=== PATIENT | male | born 2005 | race Caucasian/White ===

== ENCOUNTER → 2025-08-31 14:30 | Outpatient (BNV) | payer BC, SELFPAY | PROVIDERS: Visit Provider Psychiatry & Neurology Psychiatry | DX: F32.3 Major depressive disorder, single episode, severe with psychotic features (principal); F90.9 Attention-deficit hyperactivity disorder, unspecified type | CPT/HCPCS: 99203 ==

== ENCOUNTER 2025-10-01 11:30 | Outpatient (RCR) | payer BC, SELFPAY ==
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
--- NOTE | 2025-09-03 10:08 | HO.PHP ---
This sign writer hand reached out to the number provided for Ho by his mother Fawn. He shared he was not interested in continuing with the program. This sign writer hand encouraged giving the program 3 days to get a better understanding of the program. He reported he was safe to this sign writer hand in which he denied SI thoughts, plans, and intent today. This sign writer hand also explored if he has regular meetings with a therapist in which he appeared unsure why he would do this. This sign writer hand informed him we typically place referrals on day 3 of the program. Pt stated his phone needed to be charged and was going to . This sign writer hand advised pt to charge his phone and suggested a follow-up call would be made later today. This appeared receptive.
--- NOTE | 2025-09-03 12:37 | HO.PHP ---
[facility] staff member followed up with Ho, in which he reported that he does not want to continue in the program because he doesn't feel comfortable with being the youngest person in the group. PHP staff explored if he has an OP therapist, in which he disclosed he does not. PHP staff member assessed if he would like an OP therapist. Ho said probably. PHP staff member was receptive and noted that what she suggest he does, is that he tries the program for a little bit longer while PHP staff work on getting him an OP therapist. PHP staff member said if he is still not feeling as though this is a good fit, we can further discuss as a team then. Ho was receptive and noted that he will be here tomorrow.
[2025-09-05 09:42] VITALS: BP 102/70; PULSE 60; TEMP 37.2
--- NOTE | 2025-09-05 13:54 | HO.PHP ---
PHP staff member placed a referral through [facility] for Ho Young for OP therapy and is awaiting on an appointment date and time.
--- NOTE | 2025-09-05 14:54 | PC.ADMIT ---
Patient is a 19 year old single male who was referred to [facility] by [facility] crisis secondary to depression. Per integrative assessment patient reportedly stated he wanted to kil himself and drank heavily over the weekend thus mom took patient to crisis for an evaluation. Patient reports he was going to [employer] however he is taking a leave of absence to work on his mental health. Patient reports that he is struggling with anxiety and depression and feels he is cognitivily declining secondary to using marijuana with his prescription Adderall. Stated when he used them together he would ruminate obsessively and have psychosis. He stated he is not on his prescription Adderall as his prescriber told him to stop taking this medication. Stated last use was 08/31/25. Patient also reports last use of marijuana was September 02, 2025. Patient does not feel he needs [facility] groups at this time. Patient is alert and oriented x4. He is calm and cooperative. He presented with depressed mood and affect. Regarding SI patient denied currently. Patient stated, Sometimes, I don't really know I don't really have a plan or idea of how to do it . Patient was given a copy of his safety plan if needed. Medications updated with patient and patient's pharmacy.
--- NOTE | 2025-09-06 14:50 | HO.PHP ---
Clients case was opened and reviewed in teams.
--- NOTE | 2025-09-07 10:00 | P.PNPSP_ITS ---
Subjective Subjective Date of Service: 09/07/25 Reason For Visit: anxiety,depression Interim History: This is a follow-up visit with Ho whom I had seen last week. He has continued to be substance free but anxious specially in the mornings and some depression. Currently he is on no medications. I reviewed his previous medication trials and seems like Prozac had been the most helpful. We will initiate that at 20 mg every other day for several doses and then every day. Side effects including black box warning discussed. He continues to have passive suicidal ideations with no plans or intent. He will be seen and followed by Dr. Rios as of next week Review of Systems Review of Systems Yes all other systems are reviewed and are negative Mental Status Exam Mental Status Exam Patient Appearance: Appropriate Patient Orientation: Person, Place, Time and Situation Level of Consciousness: Appropriate Patient Behavior: Appropriate Mood Description: Calm Affect Description: Calm Patient Cognition Impaired: No Ability to Follow Directions: Excellent Speech Pattern: Clear Memory Description: Intact Hallucinations: None Delusions: Not Present Thought Process: Intact Thought Content: positive for Intact Depressive Symptoms: Increased Anxiety, Diff. Making Decisions, Difficulty Sleeping, Changes in Appetite, Sleeping More Than Usual, Loss of Int. in Activity, Feelings of Worthlessness, Isolating-Friends/Family and Thoughts of /Suicide (No active suicidal or homicidal ideations but still has passive ideations) Judgement: Good Assessment & Plan Assessment & Plan (1) Major depression with psychotic features: Status: Acute Code(s): F32.3 - Major depressive disorder, single episode, severe with psychotic features (2) ADHD: Status: Acute Code(s): F90.9 - Attention-deficit hyperactivity disorder, unspecified type Plan Continue PHP. Initiate Prozac 20 mg daily Patient educated on: medication risk/benefits Reason for contiued partial hosp. stay Substantial Risk for: harm to self Certification I certify that partial hospital treatment is medically necessary due to the symptoms and problems resulting from the patient's mental illness and the failure to treat the patient at the partial hospital level of care would likely result in the patient requiring PHP care which could not be prevented at a less intensive level of care. Total time managing care of this patient today ____ minutes. Discharge Plan Discharge Attending provider: Rosalba Rios Medications: New fluoxetine [Prozac] 20 mg capsule 20 mg PO DAILY Qty: 14 0RF No Action bupropion HCl 300 mg tablet extended release 24 hr 300 mg PO DAILY melatonin 10 mg Tablet 10 mg PO BEDTIME PRN (Reason: Insomnia) Patient Comments: Patient stated he takes two 10 mg tabs at HS OTC. He was advised to discuss with Dr. Navarro and not to take more than one tab at HS. aripiprazole 2 mg tablet 2 mg PO DAILY Stand Alone Forms: Patient Portal Discharge page Print Language: Lithuanian
--- NOTE | 2025-09-13 21:34 | HO.PHPPROGNO ---
Subjective Subjective Date of Service: 09/13/25 Reason For Visit: anxiety,depression Interim History: Patient is a 19 yo [employer] [[email or web address]] student, currently on medical leave, seen for follow-up anticipating discharge today. Pt was previously admitted and seen by covering MD who initiated fluoxetine for depressive symptoms 6 days ago. No improvement noted so far, but has been well-tolerated. Continues on Wellbutrin which he has been on for many years and is unsure if this is helpful. Patient was initially difficult to engage, appears withdrawn and reporting he's just dealing with dealing with a lot of regret I don't really want to talk about . He denies he has been able to discuss this in groups because he feels so much shame and doesn't want to trigger other patient's also concerned about being judged. He continues to struggle with SI without plan and denies intent to harm self, but reports profound sense of worthlessness and feelings of guilt. Describes anhedonia and difficult with onset of sleep due to obsessive rumination. Pervseverating on loss friendship from over 2 years ago. Marijuana use was heavy in the past and he seemed to have appreicated this was affecting him and has cut back considerably in the past year (preivous smoking daily, now says he might smoke once a week or less, last used 6 days ago). In our discussion he talks about his depression and anxiety in the context of some life situations and eventually shares regrets around deterioration of a close local intermodal truck driver friendship that lead to some behaviors that might be looked at as stalking (mostly limited to searching social media for updates and information about this friend). It is impressed upon me the severity of perseveration noted in his thought patterns, and circular and obsessional thoguhts which extends into all areas of life. and appears to be quite impaired by this for a long time now. Has made engaging with others interperosnally as well as managing his academics really difficult. It's like my brain is a Lego set and I rewind my brain going through things, playing things over and over and have analyzed myself and deconstructed my thoughts down to the parts and it's like I cant put it back together.. but I didn't mean to do this Notable for obsessiveness in the domains of morality and scrupulosity and is reminiscent of possible underling OCD spectrum. He denies any issues with anger, aggression, AI or HI. Denies any AH or VH and no paranoid or delusional content was elicited. Has previously been treated for ADHD which wsa helpful in the past, but admits he had been using this with cannabis a few years ago so stopped both. He continues to use nicotine (vape) on a daily basis my anxiety is so bad when I wake up that it's (nicotine) the first thing I hit . Medication Compliance: Yes Side effects from medications: No Attending Groups: Yes Review of Systems Acute medical concerns: No Mental Status Exam Mental Status Exam Patient Appearance: Unkempt Patient Orientation: Person, Place, Time and Situation Level of Consciousness: Awake Patient Behavior: Guarded, Anxious and Distractible (and fidgeting, avoidant eye contact) Mood Description: Depressed Affect Description: Withdrawn, Depressed and Blunted Patient Cognition Impaired: No Ability to Follow Directions: Good Speech Pattern: Perseverating Memory Description: Intact Hallucinations: None Delusions: Not Present Thought Process: Distracted and Rumination Thought Content: positive for Obsessional Thoughts, positive for Preoccupation and positive for Suicidal Ideation Depressive Symptoms: Diff. Making Decisions, Difficulty Sleeping, Changes in Appetite, Loss of Int. in Activity, Feelings of Worthlessness, Hopelessness, Isolating-Friends/Family, Feelings of Guilt, Low Self Esteem and Difficulty Concentrating Abnormal Motor Activity Signs and Symptoms: Restlessness Judgement: Good Assessment & Plan Assessment & Plan (1) MDD (major depressive disorder), recurrent severe, without psychosis: Status: Acute Code(s): F33.2 - Major depressive disorder, recurrent severe without psychotic features (2) Other obsessive-compulsive disorder: Status: Acute Code(s): F42.8 - Other obsessive-compulsive disorder (3) ADHD: Status: Acute Code(s): F90.9 - Attention-deficit hyperactivity disorder, unspecified type Plan extend PHP start Abilify 2 mg qd cont fluoxetine 20 mg (consider increasing after titrating Abilify) cont Wellbutrin XL 300 mg qam will order Vyvanse (too see if requires PA) but pt to hold off starting for now Patient educated on: diagnosis and medication risk/benefits Informed Consent: understands Reason for contiued partial hosp. stay Substantial Risk for: inability to function and med/psych decompensation Certification I certify that partial hospital treatment is medically necessary due to the symptoms and problems resulting from the patient's mental illness and the failure to treat the patient at the partial hospital level of care would likely result in the patient requiring inpatient psychiatric care which could not be prevented at a less intensive level of care. Total time managing care of this patient today _45___ minutes. Discharge Plan Discharge Attending provider: Rosalba Rios Medications: New aripiprazole 2 mg tablet 2 mg PO BEDTIME Qty: 14 0RF lisdexamfetamine 10 mg capsule 10 mg PO QAM Qty: 14 0RF Rx Instructions: Partial Fill upon patient request. lorazepam 0.5 mg tablet 0.5 mg PO BID PRN (Reason: anxiety) Qty: 14 0RF Continued fluoxetine [Prozac] 20 mg capsule 20 mg PO DAILY Qty: 14 0RF No Action bupropion HCl 300 mg tablet extended release 24 hr 300 mg PO DAILY melatonin 10 mg Tablet 10 mg PO BEDTIME PRN (Reason: Insomnia) Patient Comments: Patient stated he takes two 10 mg tabs at HS OTC. He was advised to discuss with Dr. Navarro and not to take more than one tab at HS. aripiprazole 2 mg tablet 2 mg PO DAILY Stand Alone Forms: Patient Portal Discharge page Print Language: Maltese
--- NOTE | 2025-09-14 11:50 | HO.PHP ---
This marine underwriter reached out to Ho's mother on the number provided which was her work number. This marine underwriter was provided with her cell number which was reflected on the census. She stated that Ho told his father and her that he was finished with the program. This marine underwriter informed her we were planning on extending his time in the program, and he was supposed to be present this morning. She stated that he has an apt at [employer] about his classes at 1:30 today, and that she does not think he would make it for the first group in 10-15 mins at approximately 9:30am. She reported she would call back to confirm he is safe once she gets a hold of him. She called back about 15-20 minutes later reporting he was safe, and he will be in attendance on Wednesday.
--- NOTE | 2025-09-17 09:15 | HO.PHP ---
PHP staff member reached out to Ho due to him not arriving to program. Ho disclosed that he won't be in attendance to program today. PHP staff member explored why he will not be in attendance to program, Ho responded with he is sick. [facility] staff asked Ho if he would be in attendance to program tomorrow, in which he hesitated and said most likely. PHP staff member assessed for safety. Ho reported no concerns around SI, plan or intent. Ho was informed about the attendance policy again and was reminded that he cannot miss any more days moving forward. Ho appeared receptive.
[2025-09-20 11:18] VITALS: BMI 22.3
[2025-09-20 14:35] LABS: Cannabinoid Screen Urine Not Detected (Not Detect)
--- NOTE | 2025-09-21 19:19 | HO.PHPPROGNO ---
Subjective Subjective Date of Service: 09/21/25 Reason For Visit: anxiety,depression Interim History: Slight improvement Doing only marginally better Tolerating ABilify, started 2 days ago. Still engaging in procrastination and self-sabotaging behaviors Has a history of ADHD, was a hyperactive kid but feels the hyperactive part got watered down by depression and just failure to make any progress which has really impacted hi sense of agency and productivity. His mother at times points out these ADD issues as chornic problem. Denies SI, HI, AH, VH. Medication Compliance: Yes Side effects from medications: No Attending Groups: Yes Review of Systems Acute medical concerns: No Review of Systems Review of Systems Yes all other systems are reviewed and are negative Mental Status Exam Mental Status Exam Patient Appearance: Unkempt Patient Orientation: Person, Place, Time and Situation Level of Consciousness: Awake Patient Behavior: Guarded, Anxious and Distractible (and fidgeting, avoidant eye contact) Mood Description: Depressed Affect Description: Withdrawn, Depressed and Blunted Patient Cognition Impaired: No Ability to Follow Directions: Good Speech Pattern: Perseverating Memory Description: Intact Hallucinations: None Delusions: Not Present Thought Process: Distracted and Rumination Thought Content: positive for Obsessional Thoughts, positive for Preoccupation and positive for Suicidal Ideation Depressive Symptoms: Diff. Making Decisions, Difficulty Sleeping, Changes in Appetite, Loss of Int. in Activity, Feelings of Worthlessness, Hopelessness, Isolating-Friends/Family, Feelings of Guilt, Low Self Esteem and Difficulty Concentrating Abnormal Motor Activity Signs and Symptoms: Restlessness Judgement: Good Diagnostics Vital Signs (24Hr): BMI result Body Mass Index 22.3 Assessment & Plan Assessment & Plan (1) MDD (major depressive disorder), recurrent severe, without psychosis: Status: Acute Code(s): F33.2 - Major depressive disorder, recurrent severe without psychotic features (2) Other obsessive-compulsive disorder: Status: Acute Code(s): F42.8 - Other obsessive-compulsive disorder (3) ADHD: Status: Acute Code(s): F90.9 - Attention-deficit hyperactivity disorder, unspecified type Plan extend PHP increase Abilify 3.5-5 mg qd will order Adderall IR and XR to see if gets through insurance and start next week cont fluoxetine 20 mg (consider increasing after titrating Abilify) cont Wellbutrin XL 300 mg qam (may lower if needed to make so Lj CÁRDENAS Patient educated on: diagnosis, medication risk/benefits and substance abuse Informed Consent: understands Reason for contiued partial hosp. stay Substantial Risk for: inability to function and med/psych decompensation Certification I certify that partial hospital treatment is medically necessary due to the symptoms and problems resulting from the patient's mental illness and the failure to treat the patient at the partial hospital level of care would likely result in the patient requiring inpatient psychiatric care which could not be prevented at a less intensive level of care. Total time managing care of this patient today __30__ minutes. Discharge Plan Discharge Attending provider: Rosalba Rios Additional Instructions: Ho has an OP therapy appointment with Jonny Shen for October 05, 2025 at 9 AM via telehealth. Ho has a med provider appointment with Junaid العلي on October 09, 2025 at 2 PM via telehealth. Medications: New lorazepam 0.5 mg tablet 0.5 mg PO BID PRN (Reason: anxiety) Qty: 14 0RF dextroamphetamine-amphetamine [Adderall XR] 10 mg capsule,extended release 24hr 10 mg PO QAM Qty: 14 0RF Rx Instructions: Partial Fill upon patient request. nicotine (polacrilex) [Nicorette] 4 mg gum 4 mg buccal Q2H Qty: 100 0RF Continued melatonin 10 mg Tablet 10 mg PO BEDTIME PRN (Reason: Insomnia) Patient Comments: Patient stated he takes two 10 mg tabs at HS OTC. He was advised to discuss with Dr. Navarro and not to take more than one tab at HS. aripiprazole 5 mg tablet 5 mg PO BEDTIME Qty: 30 0RF aripiprazole 2 mg tablet 2 mg PO BEDTIME Qty: 30 0RF Changed dextroamphetamine-amphetamine 5 mg tablet 5 - 10 mg PO DAILY PRN (Reason: focus/attention) Qty: 14 0RF Rx Instructions: Partial Fill upon patient request. For ADHD guanfacine 1 mg tablet extended release 24 hr 1 - 2 mg PO DAILY Qty: 30 0RF Discontinued bupropion HCl 300 mg tablet extended release 24 hr 300 mg PO DAILY aripiprazole 2 mg tablet 2 mg PO DAILY Stand Alone Forms: Patient Portal Discharge page Patient Education: ADHD in Adults (ED), ADHD in Adults (DC), Depression (DC), Obsessive Compulsive Disorder (GEN) Print Language: Pashto
--- NOTE | 2025-09-26 10:50 | PC.NURSE ---
Ho asked to leave the program. He stated he is having abdominal pain and pain in his rib cage area. He contributes this to working out at the gym stated he was working out his abdominal muscles. Stated he wants to leave early today as sitting too much contributes to his pain. I suggested he go to Urgent Care to f/u. He agreed to go to Urgent Care when he leaves the program. He did not want to stay. He denied SI. Has plans to be with his family over the holiday week and spending time with his sister who is coming home from college. [facility] staff is aware.
--- NOTE | 2025-10-01 08:51 | HO.PHP ---
PHP staff member followed up with [facility], in which the clinician spoke to Maria Elena. Maria Elena provided an OP therapy appointment with Jonny Shen for October 05, 2025 at 9 AM via telehealth.
--- NOTE | 2025-10-01 20:16 | HO.PHPPROGNO ---
Subjective Subjective Date of Service: 10/01/25 Reason For Visit: anxiety,depression Interim History: Patient seen for follow-up, anticipating discharge at the end of program today.? Reports no acute issues or concerns. Medication compliant, medications well-tolerated. Denies any adverse effects.? Feeling better with my mental health . Reports reduction in suicidal thoughts, less frequent, less intense. Is not dwelling as much . He is still prone to negative thoughts about himself but able to move on from the thoughts more easily. Abilify is at 7 mg, Adderall XR 10 mg, guanfacine ER 1 mg qd. Is planning to return to school in November. Mood is stable.? Denies any hopelessness or SI. Denies thoughts of harming self or others at this time. Denies any aggressive ideation or HI. Denies any paranoia or AH or VH. Sleep, appetite, energy stable. Medication Compliance: Yes Side effects from medications: No Attending Groups: Yes Review of Systems Acute medical concerns: No Mental Status Exam Mental Status Exam Narrative: Alert, oriented, in no acute distress. Calm, cooperative. Mood stable, affect appropriate. Speech normal. Thought process linear, coherent, more goal-directed. Thought content related to stressors, future-oriented, denies any helplessness, hopelessness or SI.? No aggressive ideation or HI. No paranoia or delusional content elicited. No evidence of psychosis. Insight and judgment fair-good. Diagnostics Vital Signs (24Hr): BMI result Body Mass Index 22.3 Assessment & Plan Assessment & Plan (1) MDD (major depressive disorder), recurrent severe, without psychosis: Status: Acute Code(s): F33.2 - Major depressive disorder, recurrent severe without psychotic features (2) ADHD: Status: Acute Code(s): F90.9 - Attention-deficit hyperactivity disorder, unspecified type (3) Other obsessive-compulsive disorder: Status: Acute Code(s): F42.8 - Other obsessive-compulsive disorder Plan Discharge from [facility] Continue regular medications? Refills sent to pharmacy Will defer further medication management to outpatient provider *Safety plan reviewed *Discharge diagnoses, treatment course, discharge plan have been reviewed with patient (including medication regime, medication management, potential side effects) as well as treatment rationale were also revisited *Discharge paperwork signed and given to patient, copy sent for scanning to chart Patient educated on: diagnosis and medication risk/benefits Informed Consent: understands Reason for contiued partial hosp. stay Substantial Risk for: stable for discharge Certification I certify that partial hospital treatment is medically necessary due to the symptoms and problems resulting from the patient's mental illness and the failure to treat the patient at the partial hospital level of care would likely result in the patient requiring inpatient psychiatric care which could not be prevented at a less intensive level of care. Total time managing care of this patient today ____ minutes. Discharge Plan Discharge Attending provider: Rosalba Rios Additional Instructions: Ho has an OP therapy appointment with Jonny Shen for October 05, 2025 at 9 AM via telehealth. Ho has a med provider appointment with Junaid العلي on October 09, 2025 at 2 PM via telehealth. Medications: New lorazepam 0.5 mg tablet 0.5 mg PO BID PRN (Reason: anxiety) Qty: 14 0RF dextroamphetamine-amphetamine [Adderall XR] 10 mg capsule,extended release 24hr 10 mg PO QAM Qty: 14 0RF Rx Instructions: Partial Fill upon patient request. nicotine (polacrilex) [Nicorette] 4 mg gum 4 mg buccal Q2H Qty: 100 0RF Continued melatonin 10 mg Tablet 10 mg PO BEDTIME PRN (Reason: Insomnia) Patient Comments: Patient stated he takes two 10 mg tabs at HS OTC. He was advised to discuss with Dr. Navarro and not to take more than one tab at HS. aripiprazole 5 mg tablet 5 mg PO BEDTIME Qty: 30 0RF aripiprazole 2 mg tablet 2 mg PO BEDTIME Qty: 30 0RF Changed dextroamphetamine-amphetamine 5 mg tablet 5 - 10 mg PO DAILY PRN (Reason: focus/attention) Qty: 14 0RF Rx Instructions: Partial Fill upon patient request. For ADHD guanfacine 1 mg tablet extended release 24 hr 1 - 2 mg PO DAILY Qty: 30 0RF Discontinued bupropion HCl 300 mg tablet extended release 24 hr 300 mg PO DAILY aripiprazole 2 mg tablet 2 mg PO DAILY Stand Alone Forms: Patient Portal Discharge page Patient Education: ADHD in Adults (ED), ADHD in Adults (DC), Depression (DC), Obsessive Compulsive Disorder (GEN) Print Language: Mozambican
== END 2025-10-01 23:59 | disposition home or self-care (01) ==
LOC: HO.PHPA 11:30
PROVIDERS: Psychiatry & Neurology Psychiatry; Visit Provider Psychiatry & Neurology Psychiatry
DX: F33.2 Major depressive disorder, recurrent severe without psychotic features (principal); F42.8 Other obsessive-compulsive disorder; F90.9 Attention-deficit hyperactivity disorder, unspecified type; Z79.899 Other long term (current) drug therapy
CPT/HCPCS: 80307; 90791; 90853